=== PATIENT | male | born 1980 | race Caucasian/White ===

== ENCOUNTER 2018-09-08 20:16 | Emergency (ER) | payer OTHER ==
[~2018-09-08] VITALS: Ht 167.6 cm; Wt 70.3 kg
[2018-09-08 20:38] VITALS: BP 127/78
--- NOTE | 2018-09-08 20:41 | NUR ---
PT AMBULATED TO LOBBY WITH VSS.
--- NOTE | 2018-09-08 22:00 | NUR ---
C/O SINUS PAIN/PRESSURE, RHINITS, COUGH, AND FEVER X4 DAYS. AFEBRILE WTIH VSS AT THIS TIME. SINUS PRESSURE WHEN HANDING HEAD FOREARD AND TENDER TO PALPATION. PT STATES BROWN-GREEN NASAL DRAINAGE. 8/10 PAIN.
--- NOTE | 2018-09-08 22:10 | NUR ---
Patient discharged with v/s stable. Written and verbal after care instructions given and explained. Patient alert, oriented and verbalized understanding of instructions. Ambulatory with steady gait. All questions addressed prior to discharge. ID band removed. Patient advised to follow up with PMD. Rx of FLONASE, IBUPROFEN, PSEUDOEPHEDRINE given. Patient educated on indication of medication including possible reaction and side effects. Opportunity to ask questions provided and answered.
--- NOTE | 2018-09-08 22:10 | NUR ---
Note undone in EDM - 09/08/18 at 2211 by OZZY C/O SINUS PAIN/PRESSURE, RHINITS, COUGH, AND FEVER X4 DAYS. AFEBRILE WTIH VSS AT THIS TIME. SINUS PRESSURE WHEN HANDING HEAD FOREARD AND TENDER TO PALPATION. PT STATES BROWN-GREEN NASAL DRAINAGE. 8/10 PAIN.
[2018-09-08 22:11] VITALS: BP 127/78
== END 2018-09-08 22:11 | disposition home or self-care (01) ==
LOC: MED 20:16
DX: J01.00 Acute maxillary sinusitis, unspecified (principal)
CPT/HCPCS: 99283